=== PATIENT | male | born 1990 | race American Indian/Alaskan Native ===

== ENCOUNTER 2021-01-13 16:27 | Emergency (ER) | payer SELFPAY ==
[2021-01-13 21:15] VITALS: BP 141/89
--- NOTE | 2021-01-14 01:49 | Emergency Department Report ---
ED ENT HPI - General Chief complaint: Dental/Oral Stated complaint: (L) SIDE OF JAW SWOLLEN Time Seen by Provider: 01/14/21 00:47 Source: patient Mode of arrival: Ambulatory Limitations: No Limitations - History of Present Illness Initial comments: 30-year-old F Malag[place] male with past medical history of left lower dental fracture/trauma almost completely eroded with some residual dentition remaining results and irritation to the to the to the general over the last few days and now has swollen area been present for the last 2 to 3 days area is worse with palpation and chewing. Ports no fever, chills, sweats, no nausea, no vomiting, no hemoptysis no hematemesis no hematochezia, no neck pain no no voice change no history of diabetes or any other immunocompromising process. MD complaint: tooth pain Location: tooth # ([id number]) Consistency: constant Improves with: none Worsens with: eating Associated Symptoms: gum swelling, toothache. denies: sore throat, tinnitus, discharge from ear, rhinorrhea - Related Data Previous Rx's Medication Instructions Recorded Last Taken Type Acetaminophen/Codeine 1 tab PO Q6H PRN #10 tab 06/12/14 Unknown Rx [Acetaminophen-Codeine #3 TAB] Penicillin Vk [Veetids TAB] 500 mg PO QID #40 tablet 06/12/14 Unknown Rx HYDROcodone/APAP 5-325 [Farrell 1 each PO Q6HR PRN #14 tablet 07/31/14 Unknown Rx 5-325 mg TAB] Ibuprofen [Motrin] 800 mg PO Q8H PRN #30 tablet 07/31/14 Unknown Rx Amoxicillin [Amoxicillin TAB] 875 mg PO BID #20 tablet 01/14/21 Unknown Rx Chlorhexidine Mouthwash [Peridex] 15 ml MM BID #1 bottle 01/14/21 Unknown Rx Ketorolac [Toradol] 10 mg PO Q6H PRN #15 tablet 01/14/21 Unknown Rx Lidocaine Viscous 2% 5 ml MM Q3H PRN #120 udc 01/14/21 Unknown Rx Allergies Allergy/AdvReac Type Severity Reaction Status Date / Time No Known Allergies Allergy Unverified 06/12/14 21:42 ED Dental HPI - General Chief complaint: Dental/Oral Stated complaint: (L) SIDE OF JAW SWOLLEN Time Seen by Provider: 01/14/21 00:47 Source: patient Mode of arrival: Ambulatory Limitations: No Limitations - Related Data Previous Rx's Medication Instructions Recorded Last Taken Type Acetaminophen/Codeine 1 tab PO Q6H PRN #10 tab 06/12/14 Unknown Rx [Acetaminophen-Codeine #3 TAB] Penicillin Vk [Veetids TAB] 500 mg PO QID #40 tablet 06/12/14 Unknown Rx HYDROcodone/APAP 5-325 [Farrell 1 each PO Q6HR PRN #14 tablet 07/31/14 Unknown Rx 5-325 mg TAB] Ibuprofen [Motrin] 800 mg PO Q8H PRN #30 tablet 07/31/14 Unknown Rx Amoxicillin [Amoxicillin TAB] 875 mg PO BID #20 tablet 01/14/21 Unknown Rx Chlorhexidine Mouthwash [Peridex] 15 ml MM BID #1 bottle 01/14/21 Unknown Rx Ketorolac [Toradol] 10 mg PO Q6H PRN #15 tablet 01/14/21 Unknown Rx Lidocaine Viscous 2% 5 ml MM Q3H PRN #120 udc 01/14/21 Unknown Rx Allergies Allergy/AdvReac Type Severity Reaction Status Date / Time No Known Allergies Allergy Unverified 06/12/14 21:42 ED Review of Systems ROS: Stated complaint: (L) SIDE OF JAW SWOLLEN Other details as noted in HPI Comment: All other systems reviewed and negative ED Past Medical Hx - Past Medical History Previous Medical History?: No - Surgical History Past Surgical History?: No - Social History Smoking Status: Never Smoker - Medications Home Medications: Home Medications Medication Instructions Recorded Confirmed Last Taken Type Acetaminophen/Codeine 1 tab PO Q6H PRN #10 tab 06/12/14 Unknown Rx [Acetaminophen-Codeine #3 TAB] Penicillin Vk [Veetids TAB] 500 mg PO QID #40 tablet 06/12/14 Unknown Rx HYDROcodone/APAP 5-325 [Farrell 1 each PO Q6HR PRN #14 tablet 07/31/14 Unknown Rx 5-325 mg TAB] Ibuprofen [Motrin] 800 mg PO Q8H PRN #30 tablet 07/31/14 Unknown Rx Amoxicillin [Amoxicillin TAB] 875 mg PO BID #20 tablet 01/14/21 Unknown Rx Chlorhexidine Mouthwash [Peridex] 15 ml MM BID #1 bottle 01/14/21 Unknown Rx Ketorolac [Toradol] 10 mg PO Q6H PRN #15 tablet 01/14/21 Unknown Rx Lidocaine Viscous 2% 5 ml MM Q3H PRN #120 udc 01/14/21 Unknown Rx ED Physical Exam - General Limitations: No Limitations General appearance: alert, in no apparent distress - Head Head exam: Present: atraumatic, normocephalic - Eye Eye exam: Present: normal appearance - ENT ENT exam: Present: mucous membranes moist, other - Expanded ENT Exam Expanded Ear exam: Present: normal external inspection Mouth exam: Present: normal external inspection 1 - Other (Area of swelling abscess formation erythema tenderness with palpation) Throat exam: Positive: normal inspection - Neck Neck exam: Present: normal inspection - Respiratory Respiratory exam: Present: normal lung sounds bilaterally. Absent: respiratory distress - Cardiovascular Cardiovascular Exam: Present: regular rate, normal rhythm. Absent: systolic murmur, diastolic murmur, rubs, gallop - GI/Abdominal GI/Abdominal exam: Present: soft, normal bowel sounds. Absent: tenderness, guarding, hypoactive bowel sounds, organomegaly, mass, bruit - Rectal Rectal exam: Present: deferred - Extremities Exam Extremities exam: Present: normal inspection, normal capillary refill - Back Exam Back exam: Present: normal inspection. Absent: CVA tenderness (R), CVA tenderness (L) - Neurological Exam Neurological exam: Present: alert, oriented X3, CN II-XII intact, normal gait - Psychiatric Psychiatric exam: Present: normal affect, normal mood. Absent: anxious, flat affect, suicidal ideation - Skin Skin exam: Present: warm, dry, intact, normal color. Absent: rash ED Course Vital Signs 01/13/21 20:53 Temperature 98.1 F Pulse Rate 57 L Respiratory 18 Rate Blood Pressure 141/89 O2 Sat by Pulse 99 Oximetry Critical care attestation.: If time is entered above; I have spent that time in minutes in the direct care of this critically ill patient, excluding procedure time. ED Disposition Clinical Impression: Dental abscess Disposition: DC-01 TO HOME OR SELFCARE Is pt being admited?: No Does the pt Need Aspirin: No Condition: Stable Instructions: Dental Abscess, Preventive Dental Care, Adult Prescriptions: Amoxicillin [Amoxicillin TAB] 875 mg PO BID #20 tablet Lidocaine Viscous 2% 5 ml MM Q3H PRN #120 udc PRN Reason: Pain, Moderate (4-6) Chlorhexidine Mouthwash [Peridex] 15 ml MM BID #1 bottle Ketorolac [Toradol] 10 mg PO Q6H PRN #15 tablet PRN Reason: Pain Referrals: [facility] [Outside] - 3-5 Days PRIMARY CARE,MD [Primary Care Provider] - 3-5 Days
--- NOTE | 2021-01-14 02:34 | XRay Report ---
XR chest routine 2V INDICATION / CLINICAL INFORMATION: pre op. COMPARISON: None available. FINDINGS: SUPPORT DEVICES: None. HEART /PULMONARY VASCULATURE: No significant abnormality. LUNGS / PLEURA: No significant pulmonary or pleural abnormality. No pneumothorax. ADDITIONAL FINDINGS: No significant additional findings. IMPRESSION: 1. No acute findings. Signer Name: Jl Mortensen MD Signed: 01/14/2021 2:29 AM Workstation Name: [id number]
== END 2021-01-14 02:30 | disposition home or self-care (01) ==
LOC: ED 16:27
DX: K04.7 Periapical abscess without sinus (principal); Z79.899 Other long term (current) drug therapy
CPT/HCPCS: 71046

== ENCOUNTER 2021-07-03 17:34 | Emergency (ER) | payer SELFPAY | END 2021-07-04 01:34 | disposition left against medical advice (07) | LOC: ED 17:34 | DX: L08.9 Local infection of the skin and subcutaneous tissue, unspecified (principal); Z53.21 Procedure and treatment not carried out due to patient leaving prior to being seen by health care provider ==